=== PATIENT | female | born 1995 | race Caucasian/White ===

== ENCOUNTER 2022-07-13 16:39 | Emergency (ER) | payer SELFPAY ==
[2022-07-13 16:40] VITALS: BP 134/93; PULSE 73; RESP 14; TEMP 36.4; O2SAT 100
--- NOTE | 2022-07-13 16:50 | PC.NURSE ---
crisis here for evaluation
--- NOTE | 2022-07-13 17:00 | ED.GENADULT ---
HPI - General Adult General Chief complaint: Psychiatric Symptoms Stated complaint: suicidal thoughts Time Seen by Provider: 07/13/22 16:49 History of Present Illness HPI narrative: Patient is a 26-year-old female with a past medical history of depression, anxiety, previous suicide attempts, here for evaluation for suicidal ideation yesterday. Patient states that she was feeling hopeless and depressed yesterday, unsure if she was going to pay rent this month. She had a plan to mix chemicals in her bathtub and inhaled toxic fumes and attempt to harm herself. She called a friend who talked her down. Today she woke up and felt better today but the police came after the friend she contacted called for a wellness check. She is not currently on any medications. Smokes marijuana daily but no other drugs or alcohol. Denies chest pain, abdominal pain, or further complaints. Review of Systems Review of Systems: Gen: Denies fevers or chills Eyes: Denies eye pain or visual change ENT: Denies congestion Respiratory: Denies shortness of breath or cough CV: Denies chest pain or palpitations GI: Denies abdominal pain nausea, emesis or diarrhea : denies burning, urgency, frequency or hematuria Musculoskeletal: Denies back pain or muscle pain Neuro: Denies numbness, tingling, weakness or focal weakness Skin: Denies rash Psych: Reports suicidal ideation Except as documented, all other systems reviewed and negative Exam Narrative: APPEARANCE: Well appearing, no pain in distress, well-nourished. Head: Normocephalic and atraumatic. EYES: PERRLA/EOMI, conjunctivae clear NOSE: No nasal drainage EARS: External ear normal in appearance THROAT: Oropharynx is clear. Mucous membranes are moist. NECK: Supple. No adenopathy, no masses. RESPIRATORY: Airway patent, respirations nonlabored. Clear to auscultation bilaterally, no rales, rhonchi, wheezing. CARDIOVASCULAR: Regular rate and rhythm without murmurs, rubs, or gallops. ABDOMINAL: Normoactive bowel sounds. Soft, nontender, nondistended. No rebound tenderness or guarding. MUSCULOSKELETAL: Extremities are warm and well-perfused. Moves all extremities well. No edema. NEURO: Normal speech. No focal neurologic deficits. SKIN: Skin is warm and dry. No rashes. PSYCHIATRIC: Normal affect/mood. Course Vital Signs Vital signs: Vital Signs Temperature 97.5 F L 07/13/22 16:40 Pulse Rate 73 07/13/22 16:40 Respiratory Rate 14 07/13/22 16:40 Blood Pressure 134/93 H 07/13/22 16:40 Pulse Oximetry 100 07/13/22 16:40 Oxygen Delivery Room Air 07/13/22 16:40 Temperature 97.5 F L 07/13/22 16:40 Pulse Rate 73 07/13/22 16:40 Respiratory Rate 14 07/13/22 16:40 Blood Pressure 134/93 H 07/13/22 16:40 Pulse Oximetry 100 07/13/22 16:40 Oxygen Delivery Room Air 07/13/22 16:40 Medical Decision Making MDM Narrative Medical decision making narrative: 26-year-old female here for evaluation of suicidal ideation and plan yesterday, no longer complaining of this today, here after friend called for wellness check on her. Patient is cooperative and denying any medical complaints. Her basic labs are unremarkable. She is medically cleared for crisis evaluation at this time. Crisis evaluated patient and felt she can be safely discharged on safety plan with outpatient resources. Feel this is appropriate. Return precautions discussed. Vital Signs Vital Signs: Vital Signs Temperature 97.5 F L 07/13/22 16:40 Pulse Rate 73 07/13/22 16:40 Respiratory Rate 14 07/13/22 16:40 Blood Pressure 134/93 H 07/13/22 16:40 Pulse Oximetry 100 07/13/22 16:40 Oxygen Delivery Room Air 07/13/22 16:40 Temperature 97.5 F L 07/13/22 16:40 Pulse Rate 73 07/13/22 16:40 Respiratory Rate 14 07/13/22 16:40 Blood Pressure 134/93 H 07/13/22 16:40 Pulse Oximetry 100 07/13/22 16:40 Oxygen Delivery Room Air 07/13/22 16:40 Lab Data 07/13/22 17:03 07/13/22 17:03
[2022-07-13 17:09] LABS: Basophils Absolute Auto 0.1 K/mm3 (0.0-0.1); Basophils Percent Auto 0.7 % (0.2-1.2); Eosinophils Absolute Auto 0.1 K/mm3 (0-0.3); Eosinophils Percent Auto 1.6 % (0-4.4); Hematocrit 43.2 % (37.0-47.0); Hemoglobin 14.6 g/dL (12.0-15.0); Immature Granulocyte Absolute 0.02 K/mm3 (0.00-0.031); Immature Granulocyte Percent A 0.2 % (0-0.5); Lymphocytes Absolute Auto 1.81 K/mm3 (0.9-3.2); Lymphocytes Percent Auto 21.2 % (18.3-44.2); Mean Corpuscular HGB Conc 33.8 g/dl (32-36); Mean Corpuscular Hemoglobin 28.9 pg (26-34); Mean Corpuscular Volume 85.4 fl (80-100); Monocytes Absolute Auto 0.5 K/mm3 (0.1-0.6); Monocytes Percent Auto 5.7 % (2.6-8.5); Neutrophils Percent Auto 70.6 % (45.5-73.1); Platelet Count Result 308 k/mm3 (150-375); Red Blood Count 5.06 M/mm3 (4.2-5.4); Red Cell Distribution Width 13.5 % (11.5-14.5); White Blood Count 8.5 K/mm3 (4.5-10.0)
[2022-07-13 17:21] LABS: Alanine Aminotransferase 14 U/L (6-35); Albumin Level 4.3 g/dL (3.5-5.1); Alkaline Phosphatase 80 U/L (38-126); Anion Gap 8 mmol/L (8-16); Aspartate Amino Transferase 18 U/L (14-36); Bilirubin,Total 0.5 mg/dL (0.2-1.3); Blood Urea Nitrogen 6 mg/dL (7-17); Calcium 8.6 mg/dL (8.4-10.2); Carbon Dioxide 22 mmol/L (22-30); Chloride 109 mmol/L (98-107); Estimated CRCL calculation 119 ml/min; Estimated Glomerular Filt Rate > 60; Glucose 92 mg/dL (65-110); Potassium 3.8 mmol/L (3.4-5.0); Sodium 139 mmol/L (137-145)
[2022-07-13 17:41] LABS: Appearance Urine Clear (Clear); Bilirubin Urine Negative (Negative); Blood Urine Trace-intact (Negative); Color Urine Yellow (Yellow); Glucose Urine UA Negative (Negative); Ketones Urine Negative (Negative); Leukocyte Esterase Ur Negative LEU/UL (Negative); Nitrate Urine Negative (Negative); Protein Urine Trace mg/dL (Negative); Urobilinogen Urine 0.2 mg/dL (<2.0); pH Urine 8.5 (5.0-9.0)
[2022-07-13 17:44] LABS: Influenza A QL RT-PCR Negative (Negative); Influenza B QL RT-PCR Negative (Negative); SARS-CoV-2 RNA PCR Negative
[2022-07-13 17:46] LABS: Bacteria Urine Trace /hpf; Mucus Urine Rare /lpf; Squamous Epithelial Cell Urine Many /hpf (Few)
[2022-07-13 17:53] LABS: Add Urine Microscopic? YES
[2022-07-13 17:53] LABS: Ethanol < 10 mg/dL (<10)
[2022-07-13 17:59] LABS: Amphetamine Screen Urine Negative (Negative); Barbiturate Screen Urine Negative (Negative); Benzodiazepines Screen Urine Negative (Negative); Cannabinoid Screen Urine Positive (Negative); Cocaine Screen Urine Negative (Negative); Methadone Screen Urine Negative (Negative); Opiate Screen Urine Negative (Negative); Phencyclidine Screen Urine Negative (Negative)
--- NOTE | 2022-07-13 19:10 | PC.NURSE ---
Provider and CRISIS agree pt is candidate for discharge and safety plan.
== END 2022-07-13 19:49 | disposition home or self-care (01) ==
PROVIDERS: Emergency Provider Physician Assistant
DX: R45.851 Suicidal ideations (principal); F41.9 Anxiety disorder, unspecified; F32.A Depression, unspecified; Z20.822 Contact with and (suspected) exposure to COVID-19
CPT/HCPCS: 36415; 80053; 80307; 81001; 81025; 84443; 85025; 87636; 99284